=== PATIENT | male | born 1985 | race African-American/Black ===

== ENCOUNTER 2022-08-11 19:56 | Emergency (ER) | payer SELFPAY ==
[~2022-08-11] VITALS: Ht 172.7 cm; Wt 61.0 kg
[2022-08-11] MEDS ORDERED: ACETAMINOPHEN 325MG TABLET PO ONE (20:30)
[2022-08-11] MEDS ORDERED: NAP5EC PO (21:03)
[2022-08-11] MEDS ORDERED: KETOROLAC 30MG/ML VIAL IM ONE (21:15)
[2022-08-11 22:24] VITALS: BP 116/77
== END 2022-08-11 22:28 | disposition home or self-care (01) ==
LOC: ER 20:23
DX: M79.672 Pain in left foot (principal); M79.671 Pain in right foot
CPT/HCPCS: 73620; 96372; 99283; J1885